=== PATIENT | male | born 1995 | race Caucasian/White ===

== ENCOUNTER 2021-10-26 18:39 | Emergency (ER) | payer SELFPAY ==
--- NOTE | 2021-10-26 18:58 | XRR_ITS ---
PROCEDURE INFORMATION: Exam: XR Chest Exam date and time: 10/26/2021 7:39 PM Age: 25 years old Clinical indication: Shortness of breath; Additional info: Dyspnea TECHNIQUE: Imaging protocol: Radiologic exam of the chest. Views: 1 view. COMPARISON: No relevant prior studies available. FINDINGS: Lungs: Unremarkable. No consolidation. Pleural spaces: Unremarkable. No pleural effusion. No pneumothorax. Heart/Mediastinum: Unremarkable. No cardiomegaly. Bones/joints: Unremarkable. XR/XR chest 1V portable [id number] IMPRESSION: No acute findings.
[2021-10-26 19:19] VITALS: BP 83/53; PULSE 111; RESP 16; TEMP 40.5; O2SAT 97; BMI 22.1
--- NOTE | 2021-10-26 19:26 | ECG_ITS ---
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 Measurements Intervals [place] Rate: 107 P: 104 [place]: 161 QRS: 195 QRSD: 82 T: 129 QT: 275 QTc: 367 Interpretive Statements SINUS TACHYCARDIA No previous ECG available for comparison Electronically Signed On 10-27-2021 10:32:39 CDT by Robb Nelson M.D. [email or web address]
[2021-10-26 19:28] VITALS: BP 122/64; PULSE 111; RESP 20; O2SAT 98
--- NOTE | 2021-10-26 19:37 | W.ED.GENADLT ---
Documented by User: Jonathan Kellogg MD 10/29/21 10:48 HPI - General Adult General: Chief complaint: Fever Stated complaint: Fever, Body Pain, N/V Time Seen by Provider: 10/26/21 19:28 History of Present Illness: Patient is a 25-year-old male presents to the ED with complaints of fever, cough and sore throat x 1 day. Yesterday afternoon patient began feeling sick ad reported subjective fever. Earlier today, patient to the temperature today was 105 degrees. 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 Patient denies any sick contacts or anybody coughing around him. Patient denies any diarrhea, abdominal pain, chest pain, productive sputum, melena/hematochezia. Patient has no complaints. Onset:1 day ago Duration:1 day Location:home Severity:moderate Associated symptoms: Reports dyspnea; Deny chest pain, nausea, rash, palpitations or vomiting Review of Systems Const: Reports: fever(s), chills and fatigue Eyes: Denies: change in vision ENMT: Reports: mouth pain (+sore throat) Card: Denies: chest pain or palpitations Resp: Reports: dyspnea and non-productive cough GI: Denies: abdominal pain, nausea, vomiting or diarrhea : Denies: dysuria Musc: Denies: extremity pain Skin/Breast: Denies: rash or new lesions Neuro: Denies: weakness in extremities Psych: Reports: other (Normal mood) Clem/Lymph: Denies: easy bruising PFS ED PFSH: Medical History No pertinent past medical history Social History Smoking and tobacco status: current every day smoker (VAPE) Physical Exam Const: COMMON NORMALS: alert HENMT: COMMON NORMALS: atraumatic HEAD & SCALP: atraumatic MOUTH: moist mucous membranes not abnormal Eye: COMMON NORMALS: EOMs intact bilaterally and conjunctivae normal CONJUNCTIVA: Yes conjunctivae normal Neck/C-Spine: COMMON NORMALS: full ROM and supple Resp: COMMON NORMALS: normal respiratory effort and clear to auscultation bilaterally AUSCULTATION: clear to auscultation bilaterally Cardio: COMMON NORMALS: regular rate RATE: regular rate GI: COMMON NORMALS: Soft to palpation and non-tender PALPATION: Yes Soft to palpation OTHER: No focal TTP. NO guarding rebound, guarding, rigidity. No CVA tenderness to percussion. Neg Bey/Neg McBurney's point tenderness, no suprabupic tenderness to palpation. Extremity: COMMON NORMALS: full ROM Neuro: SENSORIUM/ORIENTATION: Yes alert MOTOR EXAM: No Abnormal motor strength present and Other motor observations present (no focal motor deficits) Psych: COMMON NORMALS: speech normal SPEECH: Yes normal speech MOOD & AFFECT: Yes euthymic mood Course Vital Signs: Vital signs: Vital Signs Temperature 98.6 F 10/27/21 03:35 Pulse Rate 67 10/27/21 03:35 Respiratory Rate 16 10/27/21 03:35 Blood Pressure 100/74 10/27/21 03:35 Pulse Oximetry 96 10/27/21 03:35 Oxygen Delivery Me thod 10/27/21 00:30 MDM - General Adult Medical Decision Making 45-year-old male presenting to the emergency room for complaints of fever, cough and sore throat x1 day. Patient had a high-grade fever in the emergency room. Patient was intermittently noted to be tachycardic to the 120s 130s. Patient received 3 L of fluid, vancomycin and cefepime. Blood work showed a white count of 2.9. Patient's not neutropenic today. Creatinine 1.4. Case signed to Dr. Samson pending work-up. Patient care handoff received from Dr. Kellogg pending completion of ED evaluation. Patient still somewhat ill-appearing at time of handoff with active nausea and vomiting. Previous fluids and treatments continued along with additional treatments ordered. Given severity of illness without clear etiology imaging felt to be necessary and was negative for acute pathology. COVID PCR positive which may explain symptoms. I discussed the results of ED evaluation with the patient. This is a challenging situation due to extreme limitations in bed availability. Patient feels improved to the point that he is comfortable with discharge. I discussed Paxlovid which the patient wishes to proceed with. Additionally I will prescribe antiemetic. Strict return precautions given. Patient verbalized understanding and felt safe for discharge. Discharged in satisfactory condition significantly improved from initial clinical presentation. Yannick Samson MD Emergency Medicine Lab Data : 10/26/21 19:33 10/26/21 19:33 Radiology Impressions Chest X-Ray 10/26/21 18:58 IMPRESSION: No acute findings. Chest/Abdomen/Pelvis CT 10/27/21 00:31 IMPRESSION: No acute findings. IMPRESSION: 1. 14.4 cm mild splenomegaly. 2. No acute findings. Head CT 10/27/21 00:31 IMPRESSION: 1. No acute intracranial hemorrhage or mass effect. 2. No definite acute infarct by CT, see above. 3. Other findings discussed above. Laboratory Results WBC 2.9 10^3/uL (4.0-10.0) L 10/26/21 19:33 RBC 5.35 10^6/uL (4.1-5.3) H 10/26/21 19:33 Hgb 15.2 g/dL (11.7-16.6) 10/26/21 19:33 Hct 44.1 % (42.0-52.0) 10/26/21 19:33 MCV 82.4 fl (80-94) 10/26/21 19:33 MCH 28.4 pg (28.0-34.0) 10/26/21 19:33 MCHC 34.5 g/dL (30.0-36.0) 10/26/21 19:33 RDW 12.2 % (12.1-15.1) 10/26/21 19:33 Plt Count 165 10^3/cmm (130-400) 10/26/21 19:33 MPV 10.0 fL (7.4-10.4) 10/26/21 19:33 Neut % (Auto) 59.2 % 10/26/21 19:33 Lymph % (Auto) 13.3 % 10/26/21 19:33 [place] % (Auto) 26.0 % 10/26/21 19:33 Eos % (Auto) 0.4 % 10/26/21 19:33 Baso % (Auto) 0.4 % 10/26/21 19:33 Neut # (Auto) 1.69 10^3/uL (1.8-7.7) L 10/26/21 19:33 Lymph # (Auto) 0.4 10^3/uL (0.8-4.8) L 10/26/21 19:33 [place] # (Auto) 0.7 10^3/uL (0.2-0.9) 10/26/21 19:33 Eos # (Auto) 0.0 10^3/uL (0.0-0.8) 10/26/21 19:33 Baso # (Auto) 0.0 10^3/uL (0.0-0.1) 10/26/21 19:33 Nucleated RBC % (auto) 0 % 10/26/21 19: Nucleated RBCs # 0.0 /100WBC 10/26/21 19:33 Sodium 138 mmol/L (136-145) 10/26/21 19:33 Potassium 3.6 mmol/L (3.5-5.1) 10/26/21 19:33 Chloride 100 mmol/L (98-107) 10/26/21 19:33 Carbon Dioxide 27 mmol/L (22-29) 10/26/21 19:33 Anion Gap 14.6 (5-19) 10/26/21 19:33 BUN 10 mg/dL (6-20) 10/26/21 19:33 Creatinine 1.4 mg/dL (0.7-1.2) H 10/26/21 19:33 GFR Calculation 61.3 mL/min (90-130) L 10/26/21 19:33 Glucose 103 mg/dL (65-115) 10/26/21 19:33 Calculated Osmolality 285 mOsm/kg (285-295) 10/26/21 19:33 Lactate 1.9 mmol/L (0.5-2.2) 10/26/21 19:33 Calcium 9.3 mg/dL (8.5-10.5) 10/26/21 19:33 Total Bilirubin 0.9 mg/dL (0.15-1.2) 10/26/21 19:33 AST 16 U/L (0-40) 10/26/21 19:33 ALT 15 U/L (0-41) 10/26/21 19:33 Alkaline Phosphatase 62 U/L (40-130) 10/26/21 19:33 Total Protein 7.3 g/dL (6.6-8.7) 10/26/21 19:33 Albumin 4.9 g/dL (3.5-5.2) 10/26/21 19:33 Globulin 2.4 g/dL (1.3-4.6) 10/26/21 19:33 Lipase 42 U/L (13-60) 10/26/21 19:33 TSH 0.44 uIU/mL (0.27-4.20) 10/26/21 19:33 Free T4 1.27 ng/dL (0.82-1.77) 10/26/21 19:33 Nasal Influ A H1 2009 PCR Not detected (NOT DETECT) 10/26/21 20:14 Coronavirus 229E (PCR) Not detected (NOT DETECT) 10/26/21 20:14 Influenza A (H1) PCR Not detected (NOT DETECT) 10/26/21 20:14 Influenza A (H3) PCR Not detected (NOT DETECT) 10/26/21 20:14 Influenza Type A (PCR) Not detected (NOT DETECT) 10/26/21 20:14 Influenza Type B (PCR) Not detected (NOT DETECT) 10/26/21 20:14 SARS-CoV-2 (PCR) Detected (NOT DETECT) A 10/26/21 20:14 Discharge Plan Discharge Patient Disposition: Home Clinical Impression: COVID-19, Leukopenia, Dehydration Condition: Stable Prescriptions: New ondansetron 4 mg tablet,disintegrating 4 mg PO Q8H PRN (Reason: nausea and vomiting) Qty: 15 0RF Paxlovid (EUA) 150 mg x 2- 100 mg tablet See Rx Instructions .ROUTE .COMPLEX Qty: 30 0RF Rx Instructions: orally per package directions Discharge Orders: Discharge ED (Routine); Ordered 10/27/21 Ordered By: Yannick Samson Discharge Diet: Usual diet Discharge Activity: Increase activity as tolerated Patient Instructions: Nirmatrelvir/Ritonavir (By mouth) (Paxlovid), Dehydration (ED), COVID-19 (Coronavirus Disease 2019) (ED) Activity Restrictions/Additional Instructions: Thank you for visiting the emergency department. You were seen and evaluated for generalized illness. The most likely cause of your symptoms is COVID-19. You were found to be dehydrated. As discussed the treatment is primarily supportive. I will prescribe antinausea medication and paxlovid as discussed. You may use [id number] medications for symptoms please do not exceed the daily recommended dosage and please keep in mind that many namebrand medications contain the same active ingredients. Return to the emergency department for worsening symptoms, oxygen saturation at rest less than 90%, inability to tolerate oral intake, fevers that do not improve with acetaminophen or ibuprofen, or anything else that you are concerned about a feel needs emergency department evaluation. 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 Exam Comprehensive Documented by User: Yannick Samson MD 10/27/21 03:30 HPI - General Adult General: Chief complaint: Fever Stated complaint: Fever, Body Pain, N/V Time Seen by Provider: 10/26/21 19:28 [facility] ED PFSH: Medical History No pertinent past medical history Social History Smoking and tobacco status: current every day smoker (VAPE) Course Vital Signs: Vital signs: Vital Signs Temperature 98.6 F 10/27/21 03:35 Pulse Rate 67 10/27/21 03:35 Respiratory Rate 16 10/27/21 03:35 Blood Pressure 100/74 10/27/21 03:35 Pulse Oximetry 96 10/27/21 03:35 Oxygen Delivery Me thod 10/27/21 00:30 MDM - General Adult Medical Decision Making Patient care handoff received from Dr. Kellogg pending completion of ED evaluation. Patient still somewhat ill-appearing at time of handoff with active nausea and vomiting. Previous fluids and treatments continued along with additional treatments ordered. Given severity of illness without clear etiology imaging felt to be necessary and was negative for acute pathology. COVID PCR positive which may explain symptoms. I discussed the results of ED evaluation with the patient. This is a challenging situation due to extreme limitations in bed availability. Patient feels improved to the point that he is comfortable with discharge. I discussed Paxlovid which the patient wishes to proceed with. Additionally I will prescribe antiemetic. Strict return precautions given. Patient verbalized understanding and felt safe for discharge. Discharged in satisfactory condition significantly improved from initial clinical presentation. Yannick Samson MD Emergency Medicine Lab Data : 10/26/21 19:33 10/26/21 19:33 Radiology Impressions Chest X-Ray 10/26/21 18:58 IMPRESSION: No acute findings. Chest/Abdomen/Pelvis CT 10/27/21 00:31 IMPRESSION: No acute findings. IMPRESSION: 1. 14.4 cm mild splenomegaly. 2. No acute findings. Head CT 10/27/21 00:31 IMPRESSION: 1. No acute intracranial hemorrhage or mass effect. 2. No definite acute infarct by CT, see above. 3. Other findings discussed above. Laboratory Results WBC 2.9 10^3/uL (4.0-10.0) L 10/26/21 19:33 RBC 5.35 10^6/uL (4.1-5.3) H 10/26/21 19:33 Hgb 15.2 g/dL (11.7-16.6) 10/26/21 19:33 Hct 44.1 % (42.0-52.0) 10/26/21 19:33 MCV 82.4 fl (80-94) 10/26/21 19:33 MCH 28.4 pg (28.0-34.0) 10/26/21 19:33 MCHC 34.5 g/dL (30.0-36.0) 10/26/21 19:33 RDW 12.2 % (12.1-15.1) 10/26/21 19:33 Plt Count 165 10^3/cmm (130-400) 10/26/21 19:33 MPV 10.0 fL (7.4-10.4) 10/26/21 19:33 Neut % (Auto) 59.2 % 10/26/21 19:33 Lymph % (Auto) 13.3 % 10/26/21 19:33 [place] % (Auto) 26.0 % 10/26/21 19:33 Eos % (Auto) 0.4 % 10/26/21 19:33 Baso % (Auto) 0.4 % 10/26/21 19:33 Neut # (Auto) 1.69 10^3/uL (1.8-7.7) L 10/26/21 19:33 Lymph # (Auto) 0.4 10^3/uL (0.8-4.8) L 10/26/21 19:33 [place] # (Auto) 0.7 10^3/uL (0.2-0.9) 10/26/21 19:33 Eos # (Auto) 0.0 10^3/uL (0.0-0.8) 10/26/21 19: Baso # (Auto) 0.0 10^3/uL (0.0-0.1) 10/26/21 19:33 Nucleated RBC % (auto) 0 % 10/26/21 19: Nucleated RBCs # 0.0 /100WBC 10/26/21 19:33 Sodium 138 mmol/L (136-145) 10/26/21 19:33 Potassium 3.6 mmol/L (3.5-5.1) 10/26/21 19:33 Chloride 100 mmol/L (98-107) 10/26/21 19:33 Carbon Dioxide 27 mmol/L (22-29) 10/26/21 19:33 Anion Gap 14.6 (5-19) 10/26/21 19:33 BUN 10 mg/dL (6-20) 10/26/21 19:33 Creatinine 1.4 mg/dL (0.7-1.2) H 10/26/21 19:33 GFR Calculation 61.3 mL/min (90-130) L 10/26/21 19:33 Glucose 103 mg/dL (65-115) 10/26/21 19: Calculated Osmolality 285 mOsm/kg (285-295) 10/26/21 19:33 Lactate 1.9 mmol/L (0.5-2.2) 10/26/21 19:33 Calcium 9.3 mg/dL (8.5-10.5) 10/26/21 19:33 Total Bilirubin 0.9 mg/dL (0.15-1.2) 10/26/21 19:33 AST 16 U/L (0-40) 10/26/21 19:33 ALT 15 U/L (0-41) 10/26/21 19:33 Alkaline Phosphatase 62 U/L (40-130) 10/26/21 19:33 Total Protein 7.3 g/dL (6.6-8.7) 10/26/21 19:33 Albumin 4.9 g/dL (3.5-5.2) 10/26/21 19:33 Globulin 2.4 g/dL (1.3-4.6) 10/26/21 19:33 Lipase 42 U/L (13-60) 10/26/21 19:33 TSH 0.44 uIU/mL (0.27-4.20) 10/26/21 19:33 Free T4 1.27 ng/dL (0.82-1.77) 10/26/21 19:33 Nasal Influ A H1 2009 PCR Not detected (NOT DETECT) 10/26/21 20:14 Coronavirus 229E (PCR) Not detected (NOT DETECT) 10/26/21 20:14 Influenza A (H1) PCR Not detected (NOT DETECT) 10/26/21 20:14 Influenza A (H3) PCR Not detected (NOT DETECT) 10/26/21 20:14 Influenza Type A (PCR) Not detected (NOT DETECT) 10/26/21 20:14 Influenza Type B (PCR) Not detected (NOT DETECT) 10/26/21 20:14 SARS-CoV-2 (PCR) Detected (NOT DETECT) A 10/26/21 20:14 Discharge Plan Discharge Patient Disposition: Home Clinical Impression: COVID-19, Leukopenia, Dehydration Condition: Stable Prescriptions: New ondansetron 4 mg tablet,disintegrating 4 mg PO Q8H PRN (Reason: nausea and vomiting) Qty: 15 0RF Paxlovid (EUA) 150 mg x 2- 100 mg tablet See Rx Instructions .ROUTE .COMPLEX Qty: 30 0RF Rx Instructions: orally per package directions Discharge Orders: Discharge ED (Routine); Ordered 10/27/21 Ordered By: Yannick Samson Discharge Diet: Usual diet Discharge Activity: Increase activity as tolerated Patient Instructions: Nirmatrelvir/Ritonavir (By mouth) (Paxlovid), Dehydration (ED), COVID-19 (Coronavirus Disease 2019) (ED) Activity Restrictions/Additional Instructions: Thank you for visiting the emergency department. You were seen and evaluated for generalized illness. The most likely cause of your symptoms is COVID-19. You were found to be dehydrated. As discussed the treatment is primarily supportive. I will prescribe antinausea medication and paxlovid as discussed. You may use [id number] medications for symptoms please do not exceed the daily recommended dosage and please keep in mind that many namebrand medications contain the same active ingredients. Return to the emergency department for worsening symptoms, oxygen saturation at rest less than 90%, inability to tolerate oral intake, fevers that do not improve with acetaminophen or ibuprofen, or anything else that you are concerned about a feel needs emergency department evaluation. 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
[2021-10-26 19:49] LABS: Basophils % 0.4 %; Eosinophils % 0.4 %; Hematocrit 44.1 % (42.0-52.0); Hemoglobin 15.2 g/dL (11.7-16.6); Lymphocytes # 0.4 10^3/uL (0.8-4.8); Lymphocytes % 13.3 %; Mean Corpuscular HGB Conc 34.5 g/dL (30.0-36.0); Mean Corpuscular Hemoglobin 28.4 pg (28.0-34.0); Mean Corpuscular Volume 82.4 fl (80-94); Monocytes # 0.7 10^3/uL (0.2-0.9); Neutrophils # 1.69 10^3/uL (1.8-7.7); Neutrophils % 59.2 %; Nucleated Red Blood Cells % 0 %; Platelet Count 165 10^3/cmm (130-400); Red Blood Count 5.35 10^6/uL (4.1-5.3); Red Cell Distribution Width 12.2 % (12.1-15.1); White Blood Count 2.9 10^3/uL (4.0-10.0)
[2021-10-26 19:57] VITALS: BP 107/74; PULSE 105; RESP 19; O2SAT 97
[2021-10-26 20:05] LABS: Lactate (Lactic Acid level) 1.9 mmol/L (0.5-2.2)
[2021-10-26] MEDS: sodium chloride 0.9% 1,000 ML 999 ML IV ×3 (20:13→21:35)
[2021-10-26] MEDS: acetaminophen 1,000 MG/100 ML PIGGYBACK 400 MG IV (20:13)
[2021-10-26 20:20] LABS: Alanine Aminotransferase 15 U/L (0-41); Albumin Level 4.9 g/dL (3.5-5.2); Alkaline Phosphatase 62 U/L (40-130); Anion Gap 14.6 (5-19); Aspartate Amino Transferase 16 U/L (0-40); Blood Urea Nitrogen 10 mg/dL (6-20); Calcium 9.3 mg/dL (8.5-10.5); Carbon Dioxide 27 mmol/L (22-29); Chloride 100 mmol/L (98-107); Globulin 2.4 g/dL (1.3-4.6); Glomerular Filtration Rate 61.3 mL/min (90-130); Glucose 103 mg/dL (65-115); Lipase 42 U/L (13-60); Osmolality Calculated 285 mOsm/kg (285-295); Potassium 3.6 mmol/L (3.5-5.1); Sodium 138 mmol/L (136-145); Thyroid Stimulating Hormone 0.44 uIU/mL (0.27-4.20); Total Bilirubin 0.9 mg/dL (0.15-1.2); Total Protein 7.3 g/dL (6.6-8.7)
[2021-10-26 20:27] VITALS: BP 107/55; PULSE 106; RESP 26; TEMP 37.8; O2SAT 95
[2021-10-26] MEDS: vancomycin 1,000 MG in sodium chloride 0.9% 250 ML 250 MG IV (21:40)
[2021-10-26] MEDS: acetaminophen 500 mg Tablet 1000 MG PO (21:45)
[2021-10-26 22:38] LABS: Free T4 Free Thyroxine 1.27 ng/dL (0.82-1.77)
[2021-10-26] MEDS: ondansetron 2 mg/ML SDV 2 mL 4 MG IVP (23:17)
[2021-10-26] MEDS: famotidine 20 mg/2 mL INJ 40 MG IVP (23:20)
[2021-10-26] MEDS: diphenhydrAMINE 50 mg/mL SDV 1mL 25 MG IVP (23:20)
[2021-10-26 23:38] LABS: Adenovirus Not Detected (NOT DETECT); Chlamydia Pneumoniae Not Detected (NOT DETECT); Coronavirus 229E,HKU1,NL63,OC4 Not Detected (NOT DETECT); Human Metapneumovirus Not Detected (NOT DETECT); Human Rhinovirus/Enterovirus Not Detected (NOT DETECT); Influenza A Not Detected (NOT DETECT); Influenza A H1 Not Detected (NOT DETECT); Influenza A H1-2009 Not Detected (NOT DETECT); Influenza A H3 Not Detected (NOT DETECT); Influenza B Not Detected (NOT DETECT); Mycoplasma Pneumoniae Not Detected (NOT DETECT); Parainfluenza Virus Type 1 Not Detected (NOT DETECT); Parainfluenza Virus Type 2 Not Detected (NOT DETECT); Parainfluenza Virus Type 3 Not Detected (NOT DETECT); Parainfluenza Virus Type 4 Not Detected (NOT DETECT); Respiratory Syncytial Virus A Not Detected (NOT DETECT); Respiratory Syncytial Virus B Not Detected (NOT DETECT); SARS-COV-2 Detected (NOT DETECT)
[2021-10-27 00:30] VITALS: BP 99/54; PULSE 72; RESP 20; TEMP 37; O2SAT 95
--- NOTE | 2021-10-27 00:31 | CTR_ITS ---
PROCEDURE INFORMATION: Exam: CT Head Without Contrast Exam date and time: 10/27/2021 1:15 AM Age: 25 years old Clinical indication: Patient HX: Fever with hypotension; Additional info: Fuo, sepsis TECHNIQUE: Imaging protocol: Computed tomography of the head without contrast. Radiation optimization: All CT scans at this facility use at least one of these dose optimization techniques: automated exposure control; mA and/or kV adjustment per patient size (includes targeted exams where dose is matched to clinical indication); or iterative reconstruction. COMPARISON: No relevant prior studies available. RADIATION DOSE METRICS: Total DLP (mGy-cm): 1083.18 FINDINGS: Brain: No acute intracranial hemorrhage or mass effect. No definite acute infarct by CT. MRI could be more sensitive/specific for detection, as clinically directed. Cerebral ventricles: Ventricle size is normal for age. Paranasal sinuses: Included paranasal sinuses are essentially clear. Mastoid air cells: No significant acute finding. Bones/joints: No definite acute skull fracture. Soft tissues: No significant acute finding. CT/CT head wo con* [id number] IMPRESSION: 1. No acute intracranial hemorrhage or mass effect. 2. No definite acute infarct by CT, see above. 3. Other findings discussed above.
--- NOTE | 2021-10-27 00:31 | CTR_ITS ---
PROCEDURE INFORMATION: Exam: CT Chest With Contrast; Diagnostic Exam date and time: 10/27/2021 1:18 AM Age: 25 years old Clinical indication: Fever and nausea and vomiting; Patient HX: N/v. Fever. Hypotensive. Decreased wbc. Covid +; Additional info: Sepsis, ? source, n/v, fever, hypotension TECHNIQUE: Imaging protocol: Diagnostic computed tomography of the chest with contrast. Radiation optimization: All CT scans at this facility use at least one of these dose optimization techniques: automated exposure control; mA and/or kV adjustment per patient size (includes targeted exams where dose is matched to clinical indication); or iterative reconstruction. Contrast material: OMNI 350; Contrast volume: 80 ml; Contrast route: INTRAVENOUS (IV); COMPARISON: CR (CHEST, ) 10/26/2021 7:39 PM RADIATION DOSE METRICS: Total DLP (mGy-cm): 895.08 FINDINGS: Lungs: Unremarkable. No consolidation. No masses. Pleural spaces: Unremarkable. No pneumothorax. No pleural effusion. Heart: Unremarkable. No cardiomegaly. No pericardial effusion. Lymph nodes: Unremarkable. No enlarged lymph nodes. Vasculature: Unremarkable. No aortic aneurysm. Bones/joints: Upper thoracic levoscoliosis. Soft tissues: Unremarkable. PROCEDURE INFORMATION: Exam: CT Abdomen And Pelvis With Contrast Exam date and time: 10/27/2021 1:18 AM Age: 25 years old Clinical indication: Fever and nausea and vomiting; Patient HX: N/v. Fever. Hypotensive. Decreased wbc. Covid +; Additional info: Sepsis, ? source, n/v, fever, hypotension TECHNIQUE: Imaging protocol: Computed tomography of the abdomen and pelvis with contrast. Radiation optimization: All CT scans at this facility use at least one of these dose optimization techniques: automated exposure control; mA and/or kV adjustment per patient size (includes targeted exams where dose is matched to clinical indication); or iterative reconstruction. Contrast material: OMNI 350; Contrast volume: 80 ml; Contrast route: INTRAVENOUS (IV); COMPARISON: CR (CHEST, ) 10/26/2021 7:39 PM RADIATION DOSE METRICS: Total DLP (mGy-cm): 895.08 FINDINGS: Liver: Normal. No mass. Gallbladder and bile ducts: Normal. No calcified stones. No ductal dilation. Pancreas: Normal. No ductal dilation. Spleen: 14.4 cm mild splenomegaly. Adrenal glands: Normal. No mass. Kidneys and ureters: Normal. No hydronephrosis. Stomach and bowel: Unremarkable. No obstruction. No mucosal thickening. Appendix: Normal appendix. Intraperitoneal space: Unremarkable. No free air. No significant fluid collection. Vasculature: One or more calcified pelvic phleboliths. Lymph nodes: Unremarkable. No enlarged lymph nodes. Urinary bladder: Unremarkable as visualized. Reproductive: Unremarkable as visualized. Bones/joints: Unremarkable. No acute fracture. Soft tissues: Unremarkable. CT/CT chest abd pel w con* IMPRESSION: No acute findings. IMPRESSION: 1. 14.4 cm mild splenomegaly. 2. No acute findings.
[2021-10-27] MEDS: cefepime 1,000 MG in sodium chloride 0.9% (plus) 50 ML 100 MG IV (00:48)
[2021-10-27] MEDS: iohexol 350 mg/mL 100 mL Btl IV (01:37)
[2021-10-27 03:35] VITALS: BP 100/74; PULSE 67; RESP 16; TEMP 37; O2SAT 96
[2021-10-27 06:33] LABS: Results from Genmark
== END 2021-10-27 03:38 | disposition home or self-care (01) ==
PROVIDERS: Emergency Medicine; Emergency Provider Emergency Medicine
DX: U07.1 COVID-19 (principal); E86.0 Dehydration; D72.819 Decreased white blood cell count, unspecified; F17.290 Nicotine dependence, other tobacco product, uncomplicated
CPT/HCPCS: 70450; 71045; 71260; 74177; 80053; 83605; 83690; 84439; 84443; 85025; 87040; 87631; 87635; 93005; 96365; 96366; 96367; 96375; 99285; J0692; J1200; J2405; J2930; J3370; J3490; J7030; J7050; Q9967